=== PATIENT | female | born 1950 | race Caucasian/White ===

== ENCOUNTER 2020-08-07 15:02 | Outpatient (CLI) | payer MEDICARE | END 2020-08-07 15:03 | disposition home or self-care (01) | LOC: CSHMRI 15:02 | PROVIDERS: ATTEND Podiatrist | DX: M76.71 Peroneal tendinitis, right leg (principal); M84.474A Pathological fracture, right foot, initial encounter for fracture; M19.071 Primary osteoarthritis, right ankle and foot; M67.971 Unspecified disorder of synovium and tendon, right ankle and foot ==

== ENCOUNTER 2021-04-15 11:07 | Outpatient (CLI) | payer MEDICARE | END 2021-04-15 11:08 | disposition home or self-care (01) | LOC: CSHMAMMO 11:07 | PROVIDERS: ATTEND Specialist | DX: Z12.31 Encounter for screening mammogram for malignant neoplasm of breast (principal) | CPT/HCPCS: 77063; 77067 ==

== ENCOUNTER 2022-05-10 12:28 | Outpatient (CLI) | payer MEDICARE | END 2022-05-10 12:29 | disposition home or self-care (01) | LOC: CSHMAMMO 12:28 | PROVIDERS: ATTEND Specialist | DX: Z12.31 Encounter for screening mammogram for malignant neoplasm of breast (principal); Z13.820 Encounter for screening for osteoporosis; R92.1 Mammographic calcification found on diagnostic imaging of breast; N63.20 Unspecified lump in the left breast, unspecified quadrant; M85.852 Other specified disorders of bone density and structure, left thigh; M85.851 Other specified disorders of bone density and structure, right thigh | CPT/HCPCS: 77063; 77067; 77080 ==

== ENCOUNTER 2024-12-25 10:11 | Outpatient (CLI) | payer MEDICARE ==
[2024-12-25 11:25] LABS: Estimated GFR - POC 67.0
[2024-12-25] MEDS ORDERED: Iopamidol 300 61% 100 ML VIAL FS ONE (12:45)
== END 2024-12-25 10:12 | disposition home or self-care (01) ==
LOC: CSHCT 10:11
PROVIDERS: ATTEND Physician Assistant Medical
DX: R19.7 Diarrhea, unspecified (principal); R63.4 Abnormal weight loss; E27.8 Other specified disorders of adrenal gland; N28.1 Cyst of kidney, acquired; K76.9 Liver disease, unspecified; K83.8 Other specified diseases of biliary tract; D25.9 Leiomyoma of uterus, unspecified
CPT/HCPCS: 36415; 74177; 82565

== ENCOUNTER 2025-01-16 08:51 | Outpatient (CLI) | payer MEDICARE ==
[2025-01-16 10:49] LABS: Estimated GFR - POC 77.0
[2025-01-16] MEDS ORDERED: Iopamidol 300 61% 100 ML VIAL FS ONE (12:40)
== END 2025-01-16 08:52 | disposition home or self-care (01) ==
LOC: CSHCT 08:51
PROVIDERS: ATTEND Plastic Surgery Surgery of the Hand
DX: E27.9 Disorder of adrenal gland, unspecified (principal); D35.02 Benign neoplasm of left adrenal gland; D35.01 Benign neoplasm of right adrenal gland; N28.1 Cyst of kidney, acquired; K76.9 Liver disease, unspecified
CPT/HCPCS: 36415; 74170; 82565